=== PATIENT | female | born 1985 | race Caucasian/White ===

== ENCOUNTER 2017-08-31 20:38 | Emergency (ER) | payer BC, OTHER ==
[~2017-08-31] VITALS: Ht 157.5 cm; Wt 76.8 kg
[2017-08-31 20:42] VITALS: TEMP 36.7; Ht 157.5 cm; Wt 76.8 kg
--- NOTE | 2017-08-31 20:59 | EMERGENCY ROOM VISIT NOTE ---
History Report prepared by Etsher: Fazal Taylor Under the Supervision of: Dr. Emiliano Jean M.D. First contact with patient: 20:51 Chief Complaint: ABDOMINAL PAIN Stated Complaint: SEVERE ABDOMINAL PAIN History of Present Illness The patient is a 32 year old female who presents to the Emergency Room with complaints of waxing and waning, dull to severe, upper abdominal pain beginning three days ago. She currently rates her discomfort a 4/10, but it has the potential to spike to a 10/10 in severity. The patient states she started taking Bactrim for a sinus infection on Monday. She reports after taking 4 pills , she developed her symptoms. The patient notes she stopped taking her medication on Monday when her symptoms began. She states movement makes her symptoms worse, and she tried taking pain medication with no relief. The patient reports she is more bloated than normal, nauseous, and burping more frequently. She notes eating does not make it worse, she is still moving her bowels, and she denies constipation, diarrhea, and a rash. The patient states she still has her gallbladder and appendix. Source of History: patient Onset: three days ago Position: abdomen (upper) Symptom Intensity: 4-10/10 Timing: waxes/wanes Modifying Factors (Worsening): movement Associated Symptoms: + nausea, No diarrhea, No rash Note: Associated symptoms: bloating and burping Denies: constipation Review of Systems See HPI for pertinent positives & negatives. A total of 10 systems reviewed and were otherwise negative. Past Medical & Surgical Medical Problems: (1) Ovarian cyst (2) UPJ (ureteropelvic junction) obstruction Surgical Problems: (1) History of Family History Cancer Heart disease Social History Smoking Status: Current Every Day Smoker Alcohol Use: none Marital Status: Housing Status: lives with family Current/Historical Medications Scheduled Omeprazole (Omeprazole), 20 MG PO DAILY Sucralfate (Carafate), 10 ML PO DAILY Scheduled PRN Calcium Carbonate (Tums), 500 MG PO Q4H PRN for prn Allergies Coded Allergies: Neomycin (Unverified Adverse Reaction, Severe, rash and hives, 08/31/17) Physical Exam Vital Signs Date Time Temp Pulse Resp B/P (MAP) Pulse Ox O2 Delivery O2 Flow Rate FiO2 09/01/17 01:17 50 18 118/70 98 08/31/17 22:17 54 18 123/74 97 Room Air 08/31/17 20:42 36.7 67 18 145/83 98 Room Air Physical Exam GENERAL: Awake, alert, well-appearing, in no acute distress HENT: Normocephalic, atraumatic. Oropharynx unremarkable. EYES: Normal conjunctiva. Sclera non-icteric. NECK: Supple. No nuchal rigidity. FROM. No JVD. RESPIRATORY: Clear to auscultation. CARDIAC: Regular rate, normal rhythm. Extremities warm and well perfused. Pulses equal. ABDOMEN: Soft, non-distended. Slight tenderness to palpation in the RUQ. No rebound or guarding. No masses. RECTAL: Deferred. MUSCULOSKELETAL: Chest examination reveals no tenderness. The back is symmetrical on inspection without obvious abnormality. There is no CVA tenderness to palpation. No joint edema. LOWER EXTREMITIES: Calves are equal size bilaterally and non-tender. No edema. No discoloration. NEURO: Normal sensorium. No sensory or motor deficits noted. SKIN: No rash or jaundice noted. Medical Decision & Procedures ER Provider Diagnostic Interpretation: Radiology results as stated below per my review and radiologist interpretation: ABDOMEN LIMITED (US) HISTORY: Pain. Nausea. Pt c/o RUQ abd pain. COMPARISON: None. FINDINGS: Pancreas: The pancreas demonstrates a normal echotexture. Liver: Unremarkable. Gallbladder: No gallbladder wall thickening. No gallstones. CBD: 3 mm Right kidney: No hydronephrosis. IMPRESSION: No significant abnormality identified within the within the right upper quadrant. The above report was generated using voice recognition software. It may contain grammatical, syntax or spelling errors. Electronically signed by: Sea Brock M.D. 08/31/2017 10:43 PM Dictated Date/Time: 08/31/2017 10:[address] ABDOMEN & PELVIS WITH CONTRAST: ADDENDUM - Added by Faustino Weiss MD on 09/01/2017 12:25AM There is cystic type changes involving the right adnexa. Presumed ovarian/ adnexal cyst. Further characterization maybe performed with ultrasound, as clinically desired. Hypodense changes near the falciform ligament are presumed fatty infiltration measuring 15 x 14mm. This area was not appreciated on ultrasound exam performed earlier. ORIGINAL REPORT: The gallbladder is distended without gallbladder wall thickening or biliary dilation, as noted on ultrasound performed earlier. There is moderate stool in the ascending and transverse colon. The appendix is normal. No bowel obstruction or free fluid. No significant mucosal thickening. The liver, pancreas, spleen, adrenals, and kidneys are unremarkable. Radiologist: Faustino Weiss MD Study ready at 0002 and initial results transmitted at 0013. Laboratory Results 08/31/17 21:27 Red Blood Count 4.81, Mean Corpuscular Volume 87.9, Mean Corpuscular Hemoglobin 29.9, Mean Corpuscular Hemoglobin Concent 34.0, Mean Platelet Volume 10.0, Neutrophils (%) (Auto) 57.7, Lymphocytes (%) (Auto) 29.3, Monocytes (%) (Auto) 9.8, Eosinophils (%) (Auto) 2.4, Basophils (%) (Auto) 0.6, Neutrophils # (Auto) 5.56, Lymphocytes # (Auto) 2.83, Monocytes # (Auto) 0.95, Eosinophils # (Auto) 0.23, Basophils # (Auto) 0.06 08/31/17 21:27 Test 08/31/17 21:27 08/31/17 21:40 White Blood Count 9.65 K/uL (4.8-10.8) Red Blood Count 4.81 M/uL (4.2-5.4) Hemoglobin 14.4 g/dL (12.0-16.0) Hematocrit 42.3 % (37-47) Mean Corpuscular Volume 87.9 fL (80-100) Mean Corpuscular Hemoglobin 29.9 pg (25-34) Mean Corpuscular Hemoglobin Concent 34.0 g/dl (32-36) Platelet Count 239 K/uL (130-400) Mean Platelet Volume 10.0 fL (7.4-10.4) Neutrophils (%) (Auto) 57.7 % Lymphocytes (%) (Auto) 29.3 % Monocytes (%) (Auto) 9.8 % Eosinophils (%) (Auto) 2.4 % Basophils (%) (Auto) 0.6 % Neutrophils # (Auto) 5.56 K/uL (1.4-6.5) Lymphocytes # (Auto) 2.83 K/uL (1.2-3.4) Monocytes # (Auto) 0.95 K/uL (0.11-0.59) Eosinophils # (Auto) 0.23 K/uL (0-0.5) Basophils # (Auto) 0.06 K/uL (0-0.2) RDW Standard Deviation 42.0 fL (36.4-46.3) RDW Coefficient of Variation 13.0 % (11.5-14.5) Immature Granulocyte % (Auto) 0.2 % Immature Granulocyte # (Auto) 0.02 K/uL (0.00-0.02) Anion Gap 6.0 mmol/L (3-11) Est Creatinine Clear Calc Drug Dose 71.8 ml/min Estimated GFR () 79.3 Estimated GFR (Non- 68.5 BUN/Creatinine Ratio 9.7 (10-20) Calcium Level 8.8 mg/dl (8.5-10.1) Total Bilirubin 0.2 mg/dl (0.2-1) Direct Bilirubin < 0.1 mg/dl (0-0.2) Aspartate Amino Transf (AST/SGOT) 18 U/L (15-37) Alanine Aminotransferase (ALT/SGPT) 26 U/L (12-78) Alkaline Phosphatase 88 U/L (45-117) Total Protein 7.6 gm/dl (6.4-8.2) Albumin 4.1 gm/dl (3.4-5.0) Lipase 145 U/L (73-393) Human Chorionic Gonadotropin, Qual NEG (NEG) Urine Color YELLOW Urine Appearance CLOUDY (CLEAR) Urine pH 8.0 (4.5-7.5) Urine Specific [place] 1.013 (1.000-1.030) Urine Protein NEG (NEG) Urine Glucose (UA) NEG (NEG) Urine Ketones NEG (NEG) Urine Occult Blood NEG (NEG) Urine Nitrite NEG (NEG) Urine Bilirubin NEG (NEG) Urine Urobilinogen NEG (NEG) Urine Leukocyte Esterase NEG (NEG) Urine WBC (Auto) 1-5 /hpf (0-5) Urine RBC (Auto) 0-4 /hpf (0-4) Urine Hyaline Casts (Auto) 0 /lpf (0-5) Urine Epithelial Cells (Auto) 20-30 /lpf (0-5) Urine Bacteria (Auto) NEG (NEG) Labs reviewed by ED physician. Medications Administered Medications (Trade) Dose Ordered Sig/Chace Route Start Time Stop Time Status Last Admin Dose Admin Hydromorphone HCl (Dilaudid Inj) 1 mg NOW STAT IV 08/31/17 21:00 08/31/17 21:03 DC 08/31/17 21:38 1 MG Metoclopramide HCl (Reglan Inj) 10 mg NOW STAT IV 08/31/17 21:00 08/31/17 21:03 DC 08/31/17 21:37 10 MG Sodium Chloride 1,000 ml @ 999 mls/hr Q1H1M STAT IV 08/31/17 21:00 08/31/17 22:00 DC 08/31/17 21:37 999 MLS/HR ED Course 2053: Past medical records reviewed. The patient was evaluated in room A09B. A complete history and physical examination was performed. 2100: Ordered Sodium Chloride 1000 ml @ 999 mls/hr IV, Metoclopramide HCl 10mg IV, Hydromorphone HCl 1mg IV 0035: Upon reexamination the patient is resting and feeling better. She notes a history of ovarian cysts. She is going to follow up with [facility] for her ovarian cyst. I discussed results and treatment plan with the patient. She verbalizes agreement and understanding. The patient is ready for discharge when she receives her medication. 0039: Ordered Magnesium Citrate 296ml PO Medical Decision Etiologies such as appendicitis, diverticulitis, PUD, biliary pathology, UTI, pancreatitis, obstruction, mesenteric ischemia, aortic pathology, infections, inflammatory bowel disease, renal colic, as well as others were entertained. This is a 32-year-old female who presents emergency department complaining of vague abdominal tenderness. Serial abdominal examinations were performed and the patient in the emergency department and at no time to the patient exhibits surgical abdomen. In addition the patient is afebrile and does not have an elevation in her white blood cell count. She was sent for a CAT scan of the abdomen and pelvis which was concerning for large amount of stool as well as a right ovarian cyst. I did discuss the cyst finding with the patient. She states that she has had a number cyst in the past and will follow up with OB for. In the meantime the patient was given Reglan as well as Dilaudid here in the emergency department. Repeat examination revealed improvement in patient's symptoms. Patient is going to try magnesium Citrate cleanout at home. She will return to the emergency department if she develops fevers or abdominal tenderness. Patient was in agreement with the treatment plan. [place] Drug Monitoring Program Search Results: patient reviewed within database, no issues identified Impression Primary Impression: Abdominal pain Scribe Attestation The scribe's documentation has been prepared under my direction and personally reviewed by me in its entirety. I confirm that the note above accurately reflects all work, treatment, procedures, and medical decision making performed by me. Departure Information Dispostion Home / Self-Care Referrals No Doctor, Assigned (PCP) Forms Call Back Authorization, HOME CARE DOCUMENTATION FORM, IMPORTANT VISIT INFORMATION, School Instructions, Work Instructions Patient Instructions Abdominal Pain - [facility], Cysts Ovarian, ED Constipation, My [facility] Additional Instructions Take 1/2 bottle of Mag Citrate Repeat second half in six hours You have been examined and treated today on an emergency basis only. This is not a substitute for, or an effort to provide, complete comprehensive medical care. It is impossible to recognize and treat all injuries or illnesses in a single emergency department visit. It is therefore important that you follow up closely with your PCP. Call as soon as possible for an appointment. Thank you for your time and consideration. I look forward to speaking with you again soon. Please don't hesitate to call us if you have any questions. Problem Qualifiers Primary Impression: Abdominal pain Abdominal location: unspecified location Qualified Codes: R10.9 - Unspecified abdominal pain
[2017-08-31] MEDS ORDERED: SODIUM CHLORIDE 0.9% 1000ML 1,000 ML IV STA (21:00)
[2017-08-31] MEDS ORDERED: METOCLOPRAMIDE HCL INJ 5 MG/ML 2 ML VIAL IV STA (21:00)
[2017-08-31] MEDS ORDERED: HYDROmorphone INJ 1 MG/ML SYR IV STA (21:00)
[2017-08-31] MEDS ORDERED: OPTIRAY 320 IV PRN (21:15)
[2017-08-31] MEDS ORDERED: CRFL PO (21:43)
[2017-08-31] MEDS ORDERED: OMEP20TA PO (21:43)
[2017-08-31] MEDS ORDERED: CALC500C3 PO (21:43)
[2017-08-31 21:54] LABS: BASO % 0.6 %; BASO ABS # 0.06 K/uL (0-0.2); EOS % 2.4 %; EOS ABS # 0.23 K/uL (0-0.5); HEMATOCRIT 42.3 % (37-47); HEMOGLOBIN 14.4 g/dL (12.0-16.0); IG# 0.02 K/uL (0.00-0.02); LYMPH % 29.3 %; LYMPH ABS # 2.83 K/uL (1.2-3.4); MEAN CELL VOLUME 87.9 fL (80-100); MEAN CORPUSCULAR HEMOGLOBIN 29.9 pg (25-34); MONO % 9.8 %; MONO ABS # 0.95 K/uL (0.11-0.59); NEUT % 57.7 %; NEUT ABS # 5.56 K/uL (1.4-6.5); PLATELET COUNT 239 K/uL (130-400); WHITE BLOOD COUNT 9.65 K/uL (4.8-10.8)
[2017-08-31 22:01] LABS: ALBUMIN 4.1 gm/dl (3.4-5.0); ALT/SGPT 26 U/L (12-78); AST/SGOT 18 U/L (15-37); BLOOD UREA NITROGEN 10 mg/dl (7-18); CALCIUM 8.8 mg/dl (8.5-10.1); CARBON DIOXIDE 25 mmol/L (21-32); CREATININE 1.06 mg/dl (0.60-1.20); GLUCOSE 82 mg/dl (70-99); LIPASE 145 U/L (73-393); POTASSIUM 3.6 mmol/L (3.5-5.1); SODIUM 138 mmol/L (136-145)
[2017-08-31 22:04] LABS: ALKALINE PHOSPHATASE 88 U/L (45-117); TOTAL PROTEIN 7.6 gm/dl (6.4-8.2)
--- NOTE | 2017-08-31 22:44 | DIAGNOSTIC IMAGING REPORT ---
ABDOMEN LIMITED (US) HISTORY: Pain. Nausea. Pt c/o RUQ abd pain. COMPARISON: None. FINDINGS: Pancreas: The pancreas demonstrates a normal echotexture. Liver: Unremarkable. Gallbladder: No gallbladder wall thickening. No gallstones. CBD: 3 mm Right kidney: No hydronephrosis. IMPRESSION: No significant abnormality identified within the within the right upper quadrant. The above report was generated using voice recognition software. It may contain grammatical, syntax or spelling errors. Electronically signed by: Sea Brock M.D. 08/31/2017 10:43 PM Dictated Date/Time: 08/31/2017 10:42 PM
[2017-09-01] MEDS ORDERED: MAGNESIUM CITRATE 296 ML/BTL PO STA (00:39)
[2017-09-01 01:17] VITALS: BP 118/70; PULSE 50; O2SAT 98
--- NOTE | 2017-09-01 07:09 | DIAGNOSTIC IMAGING REPORT ---
CT OF THE ABDOMEN AND PELVIS WITH CONTRAST CLINICAL HISTORY: Right upper quadrant abdominal pain. COMPARISON STUDY: Right upper cord ultrasound August 31, 2017. TECHNIQUE: Following IV administration of 114 mL of Optiray-320, axial images of the abdomen and pelvis were obtained from the lung bases to the proximal femurs. Images were reviewed in the axial, sagittal, and coronal planes. IV contrast was administered without complication. A dose lowering technique was utilized adhering to the principles of ALARA. CT DOSE: 464.88 mGy.cm FINDINGS: The liver, spleen, adrenal glands, kidneys and pancreas are unremarkable. There is no biliary or pancreatic ductal dilatation. There is probable focal fat along the falciform ligament within the liver. No peripancreatic or pericholecystic infiltration is present. There is no evidence for a bowel obstruction. Caliber and wall thickness of small and large bowel are normal. The appendix is normal. There is no ascites. There are a few colonic diverticula without evidence for acute diverticulitis. Note is made of a 1.7 cm hypodense right ovarian lesion. Left ovary is not visualized. No suspicious osseous lesion is present. IMPRESSION: 1. Normal appendix. No bowel obstruction. 2. Moderate amount stool within the ascending colon and transverse colon. 3. 1.7 cm right ovarian lesion which likely reflects a dominant follicle. Electronically signed by: Girma Pruett M.D. 09/01/2017 7:08 AM Dictated Date/Time: 09/01/2017 7:00 AM
== END 2017-09-01 01:17 | disposition home or self-care (01) ==
LOC: C.EDB 20:41 → C.EDA 09-01 01:17
DX: R10.10 Upper abdominal pain, unspecified (principal); N83.201 Unspecified ovarian cyst, right side; F17.210 Nicotine dependence, cigarettes, uncomplicated; Z79.899 Other long term (current) drug therapy; Z88.8 Allergy status to other drugs, medicaments and biological substances; Z80.9 Family history of malignant neoplasm, unspecified